=== PATIENT | female | born 1995 | race African-American/Black ===

== ENCOUNTER 2017-08-18 11:32 | Emergency (ER) | payer BC ==
[~2017-08-18] VITALS: Ht 170.2 cm; Wt 80.0 kg
--- OUTSIDE RECORDS SUMMARY | 2017-08-18 11:35 | XMS REPORT | Summary of Care ---
Author Author [facility] Address [address] [place] [address] Phone Unavailable Care Team Providers Care Engineering Design Manager Name Role Phone ANTHONY N.P., KENNEY Unavailable Unavailable VICTORIANO LIN M.D. Unavailable Unavailable Unavailable Unavailable Functional Status Name Dates Details Functional status health issues are not documented Status: Name Dates Details Cognitive status health issues are not documented Status: Problems Name Dates Details Encounter for routine gynecological examination with Papanicolaou smear of cervix (V72.31, Z01.419) Status: Active Noncompliance with medications (V15.81, Z91.14) Status: Active Encounter to establish care (V65.8, Z76.89) Status: Active Pharyngitis (462, J02.9) Status: Active Allergic rhinitis (477.9, J30.9) Status: Active Screening for STDs (sexually transmitted diseases) (V74.5, Z11.3) Status: Active Folliculitis (704.8, L73.9) Status: Active STD exposure (V01.6, Z20.2) Status: Active Depression with anxiety (300.4, F41.8) Status: Active Insomnia (780.52, G47.00) Status: Active Tonsillitis (463, J03.90) Status: Active Sleep disorder breathing (780.59, G47.30) Status: Active Tonsillar hypertrophy (474.11, J35.1) Status: Active Medications Name Dates Details ValACYclovir HCl - 500 MG Oral Tablet TAKE ONE TABLET BY MOUTH TWICE A DAY FOR 3 DAYS Quantity: 6 VICTORIANO LIN M.D. * Start : 11-Apr-2017 Active Clindamycin Phosphate 1 % External Solution APPLY SPARINGLY AND GENTLY MASSAGE INTO AFFECTED AREA(S) 1 TO 2 TIMES DAILY. * Quantity: 1 Refills: 0 ANTHONY N.P., KENNEY * Start : 18-Jul-2017 Active 30 ML Bottle Sertraline HCl - 25 MG Oral Tablet TAKE 1 TABLET BY MOUTH DAILY DIRECTED * Quantity: 30 Refills: 1 ANTHONY N.P., KENNEY * Start : 18-Jul-2017 Active Allergies and Adverse Reactions Name Dates Details cephalexin (Allergy) Status: Active Past Medical History Name Dates Details No pertinent past medical history Status: Resolved Procedures Procedure Dates Details Procedures not documented Immunization Name Dates Details Immunizations not documented Family History Name Dates Details Family history of asthma (V17.5, Z82.5) Status: Active Social History Name Dates Details - Status: Name Dates Details Never smoker Vital Signs Date Test Result Details [id number] BP Systolic 109 mm[Hg] Status: Comments: Location: LUE; Position: Sitting BP Diastolic 72 mm[Hg] Status: Comments: Location: LUE; Position: Sitting Height 67 in Status: Weight 176.375 lb Status: Body Mass Index Calculated 27.62 kg/m2 Status: Body Surface Area Calculated 1.92 m2 Status: Temperature 98.2 f Status: Comments: Method: Oral Heart Rate 74 /min Status: [id number] BP Systolic 108 mm[Hg] Status: Comments: Location: LUE; Position: Sitting BP Diastolic 59 mm[Hg] Status: Comments: Location: LUE; Position: Sitting Height 67 in Status: Weight 176.25 lb Status: Body Mass Index Calculated 27.6 kg/m2 Status: Body Surface Area Calculated 1.92 m2 Status: Temperature 97.8 f Status: Comments: Method: Temporal Heart Rate 86 /min Status: Comments: Location: R Radial; Respiration Rate 18 /min Status: Comments: Quality: Normal Results Date Description Value Details :25 [[facility]] HEPATITIS PANEL Hepatitis B Surface Antigen Negative Range: Negative Hepatitis C Antibody Negative Hepatitis B Core IgM Negative Range: Negative Hepatitis A IgM Negative Range: Negative :25 [QH] HIV AB, HIV 1/2, EIA, WITH REFLEXES HIV Ag/Ab 4th Gen Negative Range: Negative :25 [QL] RPR RPR Non Reactive Range: Non Reactive : [] Herpes Simplex Virus 1 and 2 Antibody IgG Herpes Simplex Virus 1 IgG >8.0 {AI} (Above high threshold) Range: <=0.8 Comments: Antibody Index (AI) Results Interpretation ------- 0.0-0.8 Negative No detectable IgG Antibody.0.9-1.0 Equivocal Repeat testing suggested in 10-14 days.>=1.10 Positive Indicates presence of detectable IgG Antibody. Herpes Simplex Virus 2 IgG <0.2 {AI} Range: <=0.8 Comments: Antibody Index (AI) Results Interpretation ------- 0.0-0.8 Negative No detectable IgG Antibody.0.9-1.0 Equivocal Repeat testing suggested in 10-14 days.>=1.10 Positive Indicates presence of detectable IgG Antibody. [id number]:00 [Q] SURESWAB(R), VAGINOSIS/VAGINITIS PLUS CHLAMYDIA TRACHOMATIS RNA, TMA NOT DETECTED NIESSERIA GONORRHOEAE RNA,M TMA NOT DETECTED Comments: REFERENCE RANGE: C. TRACHOMATIS RNA, TMA: NOT DETECTEDN. GONORRHOEAE RNA, TMA: NOT DETECTED This test was performed using the APTIMA(R) COMBO2 Assay ([employer]). BV CATEGORY: NOT SUPPORTIVE LACTOBACILLUS SPECIES 6.3 {Log__cells} ATOPOBIUM VAGINAE NOT DETECTED {Log__cells} MEGASPHAERA SPECIES NOT DETECTED {Log__cells} GARDNERELLA VAGINALIS NOT DETECTED {Log__cells} Comments: REFERENCE RANGE : BV Category: NOT SUPPORTIVENOT SUPPORTIVE OF BV: The pattern of results is notsupportive of a diagnosis of BV: 1) Presence ofLactobacillus spp., G. vaginalis levels less than 6.0log cells/mL, and absence of A. vaginae and Megasphaeraspp; or 2) Absence of all targeted organisms; or 3) Absenceof Lactobacillus spp. plus G. vaginalis detected at levelsless than 6.0 log cells/ mL and absence of A. vaginae andMegasphaera spp. EQUIVOCAL FOR BV: The pattern of results is neithersupportive nor not supportive of a diagnosis of BV.The patient may be in transition into or out of BV:Presence of Lactobacillus spp. plus G. vaginalis(greater or equal to 6.0 log cells/mL) and/or one ofthe other BV-associated pathogens. SUPPORTIVE OF BV: The pattern of results is supportiveof a diagnosis of BV: Absence of Lactobacillus spp.and presence of G. vaginalis greater than or equal to6.0 log cells/mL and/or one or both of the otherBV-associated pathogens. Concentration for Lactobacilli (L. acidophilus/ crispatus,L. jensenii) are collectively reported under the term"Lactobacillus spp.", as these species are among theperoxide producing Lactobacilli thought to be protectiveagainst bacterial vaginosis. Atopobium vaginae, Megasphaeraspp., and Gardnerella (greater than 6.0 log cells/mL) havebeen associated with vaginosis when present in the absenceof peroxidase producing Lactobacilli. This test was developed and its analytical performancecharacteristics have been determined by [employer]. It has not been cleared or approved byA. This assay has been validated pursuant to the CLIAregulations and is used for clinical purposes. SURESWAB(R) TRICHOMONAS VAGINALIS RNA, QL, TMA NOT DETECTED Comments: REFERENCE RANGE: NOT DETECTED This test was performed using the APTIMA(R) Trichomonasvaginalis Assay(GEN-PRO[employer](R)). For more information on this test, go to:http://education.Ze[employer].CrowdChat/faq/Trichomonastma C. ALBICANS, DNA NOT DETECTED C. GLABRATA, DNA NOT DETECTED C. TROPICALIS, DNA NOT DETECTED C. PARAPSILOSIS, DNA NOT DETECTED Comments: REFERENCE RANGE: NOT DETECTED This test was developed and its analytical performancecharacteristics have been determined by [employer]. It has not been cleared or approvedby FDA. This assay has been validated pursuant to theCLIA regulations and is used for clinical purposes. Plan of Care Name Dates Details Planned Observations Planned Goals not documented Instructions Name Dates Details Instructions not documented Encounters Appointment; JOSE MIGUEL IZAGUIRRE M.D. Encounter Diagnosis: Problem not documented On: 12-Mar-2017 10:45 Appointment; [facility] Encounter Diagnosis: Problem not documented On: 26-Jun-2017 11:00 Appointment; [facility] Encounter Diagnosis: Problem not documented On: 05-Jul-2017 7:45 Appointment; KENNEY ANTHONY NP Encounter Diagnosis: Problem not documented On: 18-Jul-2017 15:30 Appointment; VICTORIANO LIN M.D. Encounter Diagnosis: Problem not documented On: 25-Jul-2017 13:30
[2017-08-18 12:16] VITALS: BP 134/71
== END 2017-08-18 12:15 | disposition home or self-care (01) ==
LOC: ER 11:32 → FSED 12:15
DX: R42 Dizziness and giddiness (principal); H81.11 Benign paroxysmal vertigo, right ear
CPT/HCPCS: 70450; 81003; 99282

== ENCOUNTER → 2017-09-26 | Day surgery (SDC) | payer BC ==
[~2017-09-26] MED LIST: BUPIVACAINE 0.25% 30ML SDV INJ ONE; CLEOCIN HCL150 MG PO; DEXAMETHASONE SOD PHOS INJ 4 MG/ML VIAL ONE; FENTANYL CITRATE/PF 100MCG/2 ML INJ ONE; GLYCOPYRROLATE INJ 1MG/ 5 ML SYR ONE; LIDOCAINE HCL 2% LOCAL INJ 5 ML SDV VIAL INJ ONE; MEPERIDINE HCL INJ 50 MG/ML INJ ONE; MIDAZOLAM HCL 2 MG/2 ML VIAL ONE; NEOSTIGMINE 5 MG/5ML SYR ONE; ONDANSETRON HCL INJ 2 MG/ML VIAL ONE; PEPCID20 MG PO; PREDNISONE20 MG PO; PROPOFOL IV EMULSION 10 MG/ML 20 ML VIAL ONE; ROCURONIUM BROMIDE 10 MG/ML 5ML VIAL ONE; SEVOFLURANE INHAL SOLN 250 ML PEN BTL ONE; TYLENOL WITH C1 EACH PO; ZOLOFT50 MG PO
--- OUTSIDE RECORDS SUMMARY | 2017-09-26 06:38 | XMS REPORT | Continuity of Care Document ---
Author Author [facility] Organization [facility] Address [address] [place] [address] Phone Unavailable Care Team Providers Care Landscape Nurseryman Name Role Phone NO, PCP PCP Unavailable Advance Directives Directive Response Recorded Date/Time Does the patient have an advance directive? No 08/18/17 12:01pm If yes, is advance directive on file with [facility]? No 08/18/17 12:01pm If not on file with [facility] will patient provide a copy? No 08/18/17 12:01pm Do you have a Directive to Physician? No 08/18/17 12:01pm Do you have a Medical Power of Plastic Sheeting Cutter? No 08/18/17 12:01pm Do you have an out of hospital Do Not Resuscitate Order? No 08/18/17 12:01pm Do you have any special needs we should be aware of? No 08/18/17 12:01pm Do you have a support person here with you today? Yes 08/18/17 12:01pm Did patient receive Notice of Privacy Practices? Yes 08/18/17 12:01pm Did patient receive patient rights and responsibilities? Yes 08/18/17 12:01pm Problems No problem information available. Medications No medication information available. Social History Smoking Status Start Date Stop Date Never Smoker Hospital Discharge Instructions No hospital discharge instruction information available. Plan of Care Discharge Date 08/18/17 12:15pm Disposition AGAINST MEDICAL ADVICE Condition at Discharge Stable Forms Provided Work/School Excuse Prescriptions See Medication Section Functional Status No functional status information available. Allergies, Adverse Reactions, Alerts Allergen Type Severity Reaction Status Last Updated CEPHALEXINS Allergy Severe ANAPHYLAXIS Active 08/18/17 Immunizations No immunization information available. Vital Signs Acute Vital Signs Vital Response Date/Time Temperature (Fahrenheit) 98.0 degrees F (97.6 - 99.5) 08/18/2017 12:16pm Pulse Pulse Rate (adult) 77 bpm (60 - 90) 08/18/2017 12:16pm Respiratory Rate 20 bpm (12 - 24) 08/18/2017 12:16pm Blood Pressure 134/71 mm Hg 08/18/2017 12:16pm Height 5 ft 7 in 08/18/2017 11:55am Weight 176.44 lb 08/18/2017 11:55am Body Mass Index 27.6 kg/m^2 08/18/2017 11:55am Results No relevant diagnostic test, laboratory data and/or discharge summary information available. Procedures No procedure information available. Encounters Encounter Location Arrival/Admit Date Discharge/Depart Date Attending Provider Departed Emergency Room [facility] 08/18/17 11:32am 08/18 12:15pm RYAN BARNETT MD
--- NOTE | 2017-09-26 10:09 | Operative Report ---
DATE OF PROCEDURE: September 26, 2017 PREOPERATIVE DIAGNOSES 1. Chronic adenotonsillitis. 2. Adenotonsillar hypertrophy. POSTOPERATIVE DIAGNOSES 1. Chronic adenotonsillitis. 2. Adenotonsillar hypertrophy. PROCEDURE: Tonsillectomy and adenoidectomy. SIGNIFICANT FINDINGS: Tonsils are 3+/3+ and scarred. Adenoids are moderately enlarged. ANESTHESIA: General endotracheal tube anesthesia. SPECIMENS REMOVED: Tonsils (adenoids were coblated). ESTIMATED BLOOD LOSS: Less than 1 mL. COMPLICATIONS: None. INDICATIONS: The patient is a 22-year-old female with a 4-5 month history of frequent episodes of acute adenotonsillitis. Each episode manifests as sore throat, abnormal swallowing sensation, postnasal drip, fever, and global sensation. She has been refractory to multiple courses of antibiotics, including amoxicillin and doxycycline. On examination, her tonsils are 3+/3+ and scarred bilaterally. She is scheduled for tonsillectomy and adenoidectomy for the treatment of chronic adenotonsillitis and adenotonsillar hypertrophy. Risks and complications of the procedures were thoroughly discussed with the patient, and they include infection, bleeding, scarring, failure to improve, need for additional operations, persistent throat symptoms, damage to teeth, gums, tongue, and lips, chronic pain, voice changes, numbness of the tongue, inability to taste, leakage of fluid through the nose when drinking liquids, damage to the eustachian tube orifices causing middle ear fluid and hearing loss, scarring of the pharynx resulting in permanent or worse nasal obstruction, need for blood transfusions, damage to surrounding nerves, blood vessels and muscles. She fully understands and gives consent. PROCEDURE: The patient was taken to the operating room and placed supine on the operating table where general anesthesia was achieved through orotracheal intubation. Decadron was administered. Eyes were taped. Shoulder roll was placed. Head and body were draped. Table was turned 90 degrees with the head towards the surgeon. Mirlande-Kulwinder mouth gag was inserted without difficulty, and placed in suspension on a Lindo stand. There was no evidence of bifid uvula, diastasis to the muscular uvula, or notched hard palate. Red rubber catheters were then inserted into the nose and brought out through the mouth to retract the soft palate. Left tonsil was grasped with a tonsillar Allis clamp, and was removed with the ArthroCare Coblator on a setting of 6 on cut mode taking care to stay right on the capsule of the tonsil. Right tonsil was removed in the same way. Hemostasis was obtained with the Coblator on a setting of 3 on coag mode. The adenoids were then examined with the laryngeal mirror, and were seen to be moderately enlarged. They were removed with the ArthroCare Coblator on a setting of 8 on cut mode taking care to avoid trauma to the torus tubarius. Hemostasis was obtained with the Coblator on a setting of 3 on coag mode. Following this, Marcaine plain was injected into the free edges of the anterior and posterior tonsillar pillars. Four milliliters were injected. Thorough irrigation was then performed. Stomach contents were suctioned with an NG tube. The red rubber catheters and Mirlande-Kulwinder mouth gag were then removed without difficulty revealing no trauma to the teeth, gums, tongue, and lips. The patient was awakened in the operating room, extubated and taken to the recovery room in good condition. Job#: [id number] CHERRI JOSE
== END | disposition home or self-care (01) ==
LOC: OR 06:34
PROVIDERS: ATTEND Otolaryngology
DX: J35.03 Chronic tonsillitis and adenoiditis (principal); Z88.1 Allergy status to other antibiotic agents; F32.9 Major depressive disorder, single episode, unspecified
CPT/HCPCS: 42821; 81025; 88304; J1100; J2001; J2175; J2250; J2405

== ENCOUNTER 2017-09-29 18:30 | Observation (INO) | payer BC ==
[~2017-09-29] VITALS: Ht 170.2 cm; Wt 79.8 kg
[~2017-09-29 18:30] MED LIST changes: -BUPIVACAINE 0.25% 30ML SDV INJ ONE; -CLEOCIN HCL150 MG PO; -DEXAMETHASONE SOD PHOS INJ 4 MG/ML VIAL ONE; -FENTANYL CITRATE/PF 100MCG/2 ML INJ ONE; -GLYCOPYRROLATE INJ 1MG/ 5 ML SYR ONE; -LIDOCAINE HCL 2% LOCAL INJ 5 ML SDV VIAL INJ ONE; -MEPERIDINE HCL INJ 50 MG/ML INJ ONE; -MIDAZOLAM HCL 2 MG/2 ML VIAL ONE; -NEOSTIGMINE 5 MG/5ML SYR ONE; -ONDANSETRON HCL INJ 2 MG/ML VIAL ONE; -PEPCID20 MG PO; -PREDNISONE20 MG PO; -PROPOFOL IV EMULSION 10 MG/ML 20 ML VIAL ONE; -ROCURONIUM BROMIDE 10 MG/ML 5ML VIAL ONE; -SEVOFLURANE INHAL SOLN 250 ML PEN BTL ONE; -TYLENOL WITH C1 EACH PO
[2017-09-29] MEDS ORDERED: PIPER-TAZ 3.375 GM 50 ML IV ONE (18:45)
[2017-09-29 18:55] LABS: BASOPHILS # (AUTO) 0.1 (0.0-0.1); BASOPHILS % 0.9 % (0.0-1.0); EOSINOPHILS % 0.3 % (0.0-6.0); HEMATOCRIT 39.6 % (34.2-44.1); LYMPHOCYTES # (AUTO) 1.6 (1.0-3.2); LYMPHOCYTES % 20.7 % (18.0-39.1); MEAN CORPUSCULAR HEMOGLOBIN 27.8 pg (28-32); MEAN CORPUSCULAR HGB CONC 32.8 g/dL (31-35); MEAN CORPUSCULAR VOLUME 84.8 fL (81-99); MONOCYTES # (AUTO) 0.7 (0.2-0.8); MONOCYTES % 9.2 % (4.4-11.3); NEUTROPHILS # (AUTO) 5.4 (2.1-6.9); NEUTROPHILS % 68.6 % (38.7-80.0); PLATELET COUNT 239 x10e3/uL (140-360); RED BLOOD COUNT 4.67 x10e6/uL (3.6-5.1); RED CELL DISTRIBUTION WIDTH 12.9 % (11.7-14.4)
[2017-09-29] MEDS ORDERED: BACITRACIN ZINC 0.9GM TP ONE (19:45)
[2017-09-29] MEDS ORDERED: KETOROLAC TROMETHAMINE 30 MG/ML VIAL IV STA (20:27)
[2017-09-29] MEDS ORDERED: MORPHINE SULFATE 2 MG/ML SYR IM STA (20:48)
[2017-09-29 21:39] LABS: ANION GAP 19.5 mmol/L (8-16); BLOOD UREA NITROGEN 9 mg/dL (7-26); BUN/CREATININE RATIO 11 (6-25); CALCIUM 10.2 mg/dL (8.4-10.2); CARBON DIOXIDE 23 mmol/L (22-29); CHLORIDE 98 mmol/L (98-107); CREATININE, SERUM 0.79 mg/dL (0.57-1.11); EST GLOMERULAR FILTRATION RATE > 60 ML/MIN (60-); GLUCOSE 67 mg/dL (74-118); SODIUM 134 mmol/L (136-145)
[2017-09-29 21:43] LABS: POTASSIUM 6.5 mmol/L (3.5-5.1)
[2017-09-29 23:24] LABS: ANION GAP 13.5 mmol/L (8-16); BLOOD UREA NITROGEN 10 mg/dL (7-26); BUN/CREATININE RATIO 14 (6-25); CALCIUM 9.9 mg/dL (8.4-10.2); CARBON DIOXIDE 25 mmol/L (22-29); CHLORIDE 100 mmol/L (98-107); CREATININE, SERUM 0.73 mg/dL (0.57-1.11); EST GLOMERULAR FILTRATION RATE > 60 ML/MIN (60-); GLUCOSE 79 mg/dL (74-118); SODIUM 135 mmol/L (136-145)
[2017-09-29 23:26] LABS: POTASSIUM 3.5 mmol/L (3.5-5.1)
--- NOTE | 2017-09-29 23:41 | Diagnostic Imaging Report ---
EXAM: CHEST XRAY LINE PLACEMENT, AP 1 view INDICATION: Left PICC placement COMPARISON: None FINDINGS: LINES/TUBES: The left approach PICC terminates in expected location of the atriocaval junction. LUNGS: No consolidations or edema. PLEURA: No effusions or pneumothorax. HEART AND MEDIASTINUM: Normal size and contour. BONES AND SOFT TISSUES: No acute findings. IMPRESSION: The left approach PICC terminates in expected location of the atriocaval junction. Signed by: Dr. Orly Madera M.D. on 09/29/2017 11:37 PM
[2017-09-30] VITALS (7 sets, daily range): BP systolic 111–118; BP diastolic 56–74
[2017-09-30] MEDS ORDERED: SODIUM CHLORIDE 0.9% 50ML 50 ML ONE (00:26)
[2017-09-30] MEDS ORDERED: IOPAMIDOL 370 MG/ML 200 ML INFUS..BTL INJ ONE (00:27)
--- NOTE | 2017-09-30 00:37 | Diagnostic Imaging Report ---
Examination:CT SOFT TISSUE NECK WITH CONTRAST History: Difficulty with swallowing and drinking since Sunday. Comparison studies: None Technique: Axial images from the skull base to the thoracic inlet Coronal and sagittal reformatted images. Intravenous contrast: 100mL of Isovue 370. Findings: Soft tissues: No abnormalities. Aerodigestive tract: No enhancing abnormality of the naso- or oropharynx. The larynx and hypopharynx evaluations are limited due to motion. Lymph nodes: No radiographically significant adenopathy. Vessels: Arteries and veins are patent. Thyroid gland: Normal in size and homogeneous. Submandibular glands: Normal in size and homogeneous. Parotid glands: Normal in size and homogeneous. Orbits: No abnormalities. Paranasal sinuses: Clear. Temporal bones: No abnormalities. Skull base and facial bones: Intact. Cervical spine: No disc bulge or herniation or foraminal or canal stenosis. IMPRESSION: No enhancing abnormality of the naso- or oropharynx. Signed by: Dr. Radha Zafar M.D. on 09/30/2017 12:33 AM
[2017-09-30] MEDS ORDERED: ACETAMINOPHEN 325 MG TAB PO PRN (02:00)
--- OUTSIDE RECORDS SUMMARY | 2017-09-30 02:25 | XMS REPORT ---
Author [facility] Address Unknown Phone Unavailable Care Team Providers Care Tax Associate Attorney Name Role Phone MAYE RAMIREZ Unavailable Unavailable Problems This patient has no known problems. Allergies, Adverse Reactions, Alerts This patient has no known allergies or adverse reactions. Medications This patient has no known medications. Results Test Description Test Time Test Comments Text Results Atomic Results Result Comments CHEST XRAY LINE PLACEMENT [place] [id number] [place] [address] Patient Name: TAMRA MARKHAM MR #: [id number] : 1995 Age/Sex: 22/F Req #: [id number] Adm Physician: Ordered by: RYAN ZIEGLER MD Report #: [id number] Location: ER Room/Bed: ___ Procedure: [id number] DX/CHEST XRAY LINE PLACEMENT Exam Date: 09/29/17 Exam Time: 2325 REPORT STATUS: Signed EXAM: CHEST XRAY LINE PLACEMENT, AP 1 view INDICATION: Left PICC placement COMPARISON: None FINDINGS: LINES/TUBES: The left approach PICC terminates in expected location of the atriocaval junction. LUNGS: No consolidations or edema. PLEURA: No effusions or pneumothorax. HEART AND MEDIASTINUM: Normal size and contour. BONES AND SOFT TISSUES: No acute findings. IMPRESSION: The left approach PICC terminates in expected location of the atriocaval junction. Signed by: Dr. Benjie Mdaera M.D. on 09/29/2017 11:37 PM Dictated By: BENJIE MADERA MD 36 Transcribed By: MINO on 09/29/172336 COPY TO: RYAN ZIEGLER MD CT SOFT TISSUE NECK [address] [place] [address] Patient Name: TAMRA MARKHAM MR #: [id number] : 1995 Age/Sex: 22/F Req #: [id number] Adm Physician: Ordered by: MAYE RAMIREZ DO Report #: [id number] Location: ER Room/Bed: Procedure: [id number] CT/CT SOFT TISSUE NECK W Exam Date: Exam Time: REPORT STATUS: Signed Examination:CT SOFT TISSUE NECK WITH CONTRAST History: Difficulty with swallowing and drinking since Sunday. Comparison studies: None Technique: Axial images from the skull base to the thoracic inlet Coronal and sagittal reformatted images. Intravenous contrast: 100mL of Isovue 370. Findings: Soft tissues: No abnormalities. Aerodigestive tract: No enhancing abnormality of the naso- or oropharynx. The larynx and hypopharynx evaluations are limited due to motion. Lymph nodes: No radiographically significant adenopathy. Vessels: Arteries and veins are patent. Thyroid gland: Normal in size and homogeneous. Submandibular glands: Normal in size and homogeneous. Parotid glands: Normal in size and homogeneous. Orbits : No abnormalities. Paranasal sinuses: Clear. Temporal bones: No abnormalities. Skull base and facial bones: Intact. Cervical spine: No disc bulge or herniation or foraminal or canal stenosis. IMPRESSION: No enhancing abnormality of the naso- or oropharynx. Signed by: Dr. Radha Zafar M.D. on 09/30/2017 12:33 AM Dictated By: RADHA HIRSCH MD COPY TO: MAYE RAMIREZ DO
[2017-09-30] MEDS: SODIUM CHLORIDE 0.9% 1000ML 1,000 ML IV SCH ×3 (02:46→11:33)
[2017-09-30] MEDS: ONDANSETRON HCL INJ 2 MG/ML VIAL IV PRN ×5 (02:47→21:04)
[2017-09-30] MEDS: MORPHINE SULFATE 2 MG/ML SYR IV PRN ×5 (02:47→21:04)
[2017-09-30] MEDS ORDERED: KETOROLAC TROMETHAMINE 30 MG/ML VIAL IV PRN (09:45)
--- NOTE | 2017-09-30 10:17 | History and Physical ---
PRIMARY CARE PHYSICIAN: None CHIEF COMPLAINT: Difficulty with swallowing and shortness of breath. HISTORY OF PRESENT ILLNESS: A 22-year-old woman with no significant medical history underwent tonsillectomy and adenoidectomy on Sunday of last week by Dr. Vasquez, now developing shortness of breath and pain with swallowing. Therefore, she came to the hospital. Denies any fever, chills or sweats. Denies any diarrhea. PAST MEDICAL HISTORY: None. PAST SURGICAL HISTORY: Tonsillectomy and adenoidectomy on Sunday last week. ALLERGIES: PER ELECTRONIC MEDICAL RECORD. FAMILY HISTORY/SOCIAL HISTORY: Patient is single. She has no children. No alcohol, illicits or cigarettes. MEDICATIONS: Per electronic medical records. REVIEW OF SYSTEMS: Denies any dizziness or chest pain. PHYSICAL EXAMINATION VITAL SIGNS: Reviewed. GENERAL: A tired-appearing woman resting in bed. HEENT: Anicteric. Pupils respond to light. She has erythema and mild edema of the oropharynx, although it is difficult to visualize. No oropharyngeal pus is visible in the mouth, but there is a limited exam. Dry mucous membranes. CARDIOVASCULAR: Normal S1 and S2. LUNGS: Moderate breath sounds. ABDOMEN: Soft, nontender and nondistended. EXTREMITIES: No edema or calf tenderness. NEUROLOGICAL: Alert and oriented times 3. Moving all extremities. SKIN: Dry. PSYCHIATRIC: Flat affect. LABS: Reviewed. MEDICATIONS: Reviewed. ASSESSMENT AND PLAN: This is a 22-year-old woman with: 1. Odynophagia: Will give some steroids and await Dr. Vasquez's evaluation. 2. Hyperkalemia: Has improved. Will follow. 3. Shortness of breath: Related to some edema of the oropharynx likely. 4. Oropharyngeal edema after surgical manipulation: Will give steroids and empiric antibiotics with clindamycin. 5. Dehydration: Rehydrate. 6. Prophylaxis: Sequential compression devices and intravenous Pepcid. 7. Disposition: Monitor closely. Give intravenous steroids and clindamycin. Await Dr. Vasquez's evaluation. Job#: [id number] MD
[2017-09-30 10:44] LABS: MAGNESIUM 1.6 MG/DL (1.3-2.1); PHOSPHORUS 2.5 MG/DL (2.3-4.7); POTASSIUM 3.5 mmol/L (3.5-5.1)
[2017-09-30] MEDS ORDERED: HYDROCODONE BIT/ACETAMINOPHEN 2.5 MG/108MG PER 5 ML SOLUTION PO PRN (11:30)
[2017-09-30] MEDS: CLINDAMYCIN 300MG 50 ML IV SCH ×3 (11:42→21:04)
[2017-09-30] MEDS: METHYLPREDNISOLONE SOD SUCC 40 MG/ML VIAL IV SCH ×3 (12:00→18:00)
[2017-09-30] MEDS ORDERED: FAMOTIDINE 20 MG TAB PO SCH (16:30)
[2017-09-30] MEDS ORDERED: FAMOTIDINE 20 MG/2 ML VIAL IV SCH (17:00)
[2017-09-30] MEDS ORDERED: METHYLPREDNISOLONE SOD SUCC 40 MG/ML VIAL IV SCH (21:00)
[2017-09-30] MEDS: FAMOTIDINE 20 MG/2 ML VIAL IV SCH (21:03)
[2017-10-01] VITALS (8 sets, daily range): BP systolic 105–116; BP diastolic 54–62
[2017-10-01] MEDS: METHYLPREDNISOLONE SOD SUCC 40 MG/ML VIAL IV SCH ×5 (00:21→23:35)
[2017-10-01] MEDS: MORPHINE SULFATE 2 MG/ML SYR IV PRN ×5 (02:03→22:30)
[2017-10-01] MEDS: ONDANSETRON HCL INJ 2 MG/ML VIAL IV PRN (02:03)
[2017-10-01] MEDS: SODIUM CHLORIDE 0.9% 1000ML 1,000 ML IV SCH ×3 (05:41→19:51)
[2017-10-01] MEDS: CLINDAMYCIN 300MG 50 ML IV SCH ×3 (05:41→21:59)
[2017-10-01 06:58] LABS: HEMATOCRIT 34.6 % (34.2-44.1); HEMOGLOBIN 11.1 g/dL (12.0-16.0); LYMPHOCYTES # (AUTO) 0.7 (1.0-3.2); LYMPHOCYTES % 12.2 % (18.0-39.1); MEAN CORPUSCULAR HEMOGLOBIN 28.2 pg (28-32); MEAN CORPUSCULAR HGB CONC 32.1 g/dL (31-35); MONOCYTES # (AUTO) 0.1 (0.2-0.8); MONOCYTES % 1.3 % (4.4-11.3); NEUTROPHILS # (AUTO) 5.2 (2.1-6.9); PLATELET COUNT 215 x10e3/uL (140-360); RED BLOOD COUNT 3.93 x10e6/uL (3.6-5.1); RED CELL DISTRIBUTION WIDTH 11.9 % (11.7-14.4)
--- NOTE | 2017-10-01 07:25 | Progress Note ---
DATE: October 01, 2017 TIME: 6:56 a.m. OVERNIGHT: Some improvement in symptoms, but still having pain with swallowing. REVIEW OF SYSTEMS: Denies any dizziness. PHYSICAL EXAMINATION VITAL SIGNS: Reviewed. GENERAL: A tired-appearing woman resting in bed. HEENT: Anicteric. She has oropharyngeal difficult to visualize. CARDIOVASCULAR: Normal S1 and S2. LUNGS: Moderate breath sounds. ABDOMEN: Soft, nontender and nondistended. EXTREMITIES: No edema. SKIN: Dry. PSYCHIATRIC: Normal affect. LABS: Reviewed. MEDICATIONS: Reviewed. ASSESSMENT: This is a 22-year-old woman with: 1. Odynophagia. 2. Hyperkalemia. 3. Shortness of breath. 4. Oropharyngeal edema after surgical manipulation. 5. Dehydration. PLAN 1. Continue IV steroids. 2. Follow up labs this morning. 3. Continue IV clindamycin. 4. Continue Pepcid. 5. Follow up with Dr. Vasquez's recommendations. Job#: [id number] CHERRI
[2017-10-01 07:29] LABS: ALANINE AMINOTRANSFERASE 12 IU/L (0-55); ALBUMIN 3.2 g/dL (3.5-5.0); ALBUMIN/GLOBULIN RATIO 0.9 (0.8-2.0); ALKALINE PHOSPHATASE 49 IU/L (40-150); BLOOD UREA NITROGEN 8 mg/dL (7-26); BUN/CREATININE RATIO 12 (6-25); CALCIUM 9.3 mg/dL (8.4-10.2); CARBON DIOXIDE 24 mmol/L (22-29); CHLORIDE 104 mmol/L (98-107); CREATININE, SERUM 0.67 mg/dL (0.57-1.11); EST GLOMERULAR FILTRATION RATE > 60 ML/MIN (60-); GLUCOSE 117 mg/dL (74-118); MAGNESIUM 1.6 MG/DL (1.3-2.1); PHOSPHORUS 2.9 MG/DL (2.3-4.7); SODIUM 134 mmol/L (136-145)
[2017-10-01] MEDS: FAMOTIDINE 20 MG/2 ML VIAL IV SCH ×2 (07:29→21:59)
--- NOTE | 2017-10-01 08:33 | Consultation ---
DATE OF CONSULTATION: October 01, 2017 CHIEF COMPLAINT: Throat problems. HISTORY OF PRESENT ILLNESS: The patient is a 22-year-old female who underwent tonsillectomy and adenoidectomy on Sunday, September 26, 2017. The patient complained of difficulty breathing, throat pain, postnasal drip, tongue swelling after the surgery. She denies any fever, chills, night sweats, or bleeding. She presented to the [facility] emergency room on Sunday evening, September 29, 2017, and she was admitted on September 30, 2017. CT of the neck was performed, which revealed no evidence of airway obstruction or fluid collection. The patient was treated with steroids, clindamycin and IV fluids resulting in some improvement of her throat symptoms. PAST MEDICAL HISTORY: Chronic skin folliculitis. PAST SURGICAL HISTORY: Tonsillectomy and adenoidectomy on September 26, 2017, oral surgery. ALLERGIES: CEPHALEXIN WHICH CAUSES THROAT SWELLING. MEDICATIONS: At home include hydrocodone, acetaminophen elixir. SOCIAL HISTORY: She is a nonsmoker and nondrinker. PHYSICAL EXAMINATION GENERAL: The patient is a young female appearing her stated age in no apparent distress. She has no dyspnea or stridor. She is sitting comfortably in her bed eating Jell-O and drinking water. HEENT: Face is symmetric. Nasal exam is clear. Oral cavity and oropharynx reveals evidence of previous tonsillectomy, but no other abnormalities. Her airway is patent with no swelling or edema causing obstruction. NECK: Supple with no lymphadenopathy. ASSESSMENT: Throat symptoms typical for posttonsillectomy patient. RECOMMENDATIONS: Recommend discharge home with encouragement for oral intake of soft diet and fluids. Job#: [id number] CHERRI JOSE
[2017-10-01] MEDS ORDERED: SERTRALINE HCL 50 MG TAB PO SCH (09:00)
[2017-10-02] VITALS: BP 100/50
[2017-10-02] MEDS: SODIUM CHLORIDE 0.9% 1000ML 1,000 ML IV SCH ×2 (01:54→09:54)
[2017-10-02 04:00] VITALS: BP 94/47
[2017-10-02] MEDS: CLINDAMYCIN 300MG 50 ML IV SCH (06:50)
[2017-10-02] MEDS: METHYLPREDNISOLONE SOD SUCC 40 MG/ML VIAL IV SCH (06:50)
[2017-10-02] MEDS ORDERED: PREDNISONE20 MG PO (06:58)
[2017-10-02] MEDS ORDERED: CLEOCIN HCL150 MG PO (06:58)
[2017-10-02] MEDS ORDERED: PEPCID20 MG PO (06:58)
[2017-10-02] MEDS ORDERED: TYLENOL WITH C1 EACH PO (06:59)
[2017-10-02 07:45] VITALS: BP 94/47
--- NOTE | 2017-10-02 08:04 | Discharge Summary ---
PRINCIPAL DIAGNOSES 1. Odynophagia following tonsillectomy and adenoidectomy. 2. Hyperkalemia. 3. Shortness of breath. 4. Oropharyngeal edema after surgical manipulation. 5. Dehydration. SECONDARY DIAGNOSIS: None CHIEF COMPLAINT: Difficulty swallowing. HISTORY OF PRESENT ILLNESS: A 22-year-old woman with difficulty swallowing after surgery. Refer to the H and P for further details. HOSPITAL COURSE: The patient had odynophagia following tonsil and adenoidectomy. She was treated for pain. She had hyperkalemia, which improved. She had shortness of breath and received oxygen therapy. Received steroids for oropharyngeal edema after surgical manipulation. Fluids for dehydration. The patient is doing better and currently appropriate for discharge. Will follow up. DISCHARGE MEDICATIONS: Per electronic medical records. FOLLOWUP 1. With me in [address] Vasquez in 1 week. YOLANDA VILLAVICENCIO MD Job#: [id number] [place]
[2017-10-02 08:05] VITALS: BP 102/53
[2017-10-02] MEDS: MORPHINE SULFATE 2 MG/ML SYR IV PRN (08:24)
[2017-10-02] MEDS: FAMOTIDINE 20 MG/2 ML VIAL IV SCH (09:00)
== END 2017-10-02 10:40 | disposition home or self-care (01) ==
LOC: ER 18:32 → ERHOLD 09-30 02:21 → MED/SURG 09-30 02:51
PROVIDERS: ADMIT Internal Medicine; ATTEND Internal Medicine
DX: R13.10 Dysphagia, unspecified (principal); G89.18 Other acute postprocedural pain; E87.5 Hyperkalemia; R06.02 Shortness of breath; E86.0 Dehydration
CPT/HCPCS: 36415 ×3; 36569 ×2; 70491; 71045; 80048; 80053; 83735 ×2; 84100 ×2; 84132; 84702; 85025 ×2; 99284; G0378 ×3; J1885; J2270 ×4; J2405 ×2; J2543; J2920 ×3; J7030 ×2; Q9967